=== PATIENT | male | born 1955 | race Caucasian/White ===

== ENCOUNTER 2017-09-22 08:16 | Day surgery (SDC) | payer MEDICAID ==
[2017-09-22 08:43] VITALS: BMI 23.1
[2017-09-22] MEDS ORDERED: Propofol 10 mg/ml Inj (20 ML) ONE ×3 (10:15→11:28)
[2017-09-22] MEDS ORDERED: Midazolam 2 MG/2 ML VIAL ONE (10:15)
[2017-09-22] MEDS ORDERED: Lidocaine 1% Inj (20ml) ONE (10:17)
[2017-09-22] MEDS ORDERED: Bupivacaine 0.5% Inj(30mL) ONE (10:17)
[2017-09-22] MEDS ORDERED: Lidocaine 1% w Epi 1:100,000 Inj ONE (10:17)
--- NOTE | 2017-09-22 12:02 | PCM.SURG1 ---
Surgeon's Initial Post Op Note - Surgeon's Notes Surgeon: Dr. Clarke Stencil Printer: Daniela PGY1 Type of Anesthesia: IV Sedation, Local Anesthesia Administered By: Dr. Zamora Pre-Operative Diagnosis: Left volar ganglion cyst Operative Findings: Left volar ganglion cyst Post-Operative Diagnosis: Left volar ganglion cyst Operation Performed: Removal of Left volar ganglion cyst Specimen/Specimens Removed: Left volar ganglion cyst Estimated Blood Loss: EBL {In ML}: 10 Blood Products Given: N/A Drains Used: No Drains Post-Op Condition: Good Date of Surgery/Procedure: 09/22/17 Time of Surgery/Procedure: 12:01
[2017-09-22] MEDS ORDERED: Lactated Ringer's 1,000 ML IV SCH (12:15)
[2017-09-22 12:53] VITALS: BP 144/72; PULSE 67; RESP 20; O2SAT 94
[2017-09-22 13:52] VITALS: TEMP 97.3
--- NOTE | 2017-09-24 08:11 | OP ---
PROCEDURE DATE: 09/22/2017 He is admitted and operated on 09/22/2017. SURGEON: Bart Clarke MD. RADIOLOGY SUPERVISOR: Demetri Lamb DO, PGY-1. MANUFACTURING QUALITY MANAGER: Dr. Zamora. ANESTHESIA: MAC-Marcaine 0.5-13 mL. 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 PROCEDURE: On 09/22/2017 is excision of a recurrent left wrist ganglion. There was intermediate layered plastic closure 5 cm. 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 The lesion has been previously removed and recurred and then followed up here several years later, injected, aspirated and the lesion has shrunk, but still continues to give the patient discomfort and with the recommendation that this could be removed with the possibility of another recurrence being described, the patient does sign the informed consent. OPERATIVE NOTE: The patient was brought to the operating room. He was identified by his wrist band, undergoes time-out procedure. He was placed on the table in a supine manner and following intravenous sedation and oxygenation monitoring (MAC) by Dr. Zamora, the left wrist was placed on an ironing board table, aseptically draped and then prepped with Hibiclens. Infiltration elliptically around the lesion from the wrist towards the forearm is employed with the bupivacaine and after good anesthetic take, incision is made longitudinally along the midline from the wrist to the forearm. Sharp dissection is carried on down to the cicatrix below and hemostasis is contained with electrocoagulating cautery. Flaps are raised laterally with sharp dissection and hemostasis contained with the cautery again. The lesion is grasped with Hemostat, elevated and dissection is carried on sharply down through the deeper structures to the tendons below and care was taken to avoid injury to the median nerve directly below this. The lesion is completely removed at this point and no additional mucoid or glandular secreting tissue was visualized. The surface areas are electrofulgurated at this point to help prevent this as well. Hemostasis is confirmed and the wound is now closed in layers using 3-0 Polysorb subcutaneous approximation and 3-0 nylon running locking vertical mattress sutures for the skin incision. A dry dressing is applied. The patient was then awakened, transported to the recovery room in a satisfactory condition. Estimated blood loss during the procedure was less than 10 mL of blood. This dictation will be electronically signed without being read. The surgical specialist was present throughout the procedure from beginning to end and was exceptionally necessary for dissection and removal of the lesion. Bart Clarke MD
== END 2017-09-22 14:00 | disposition home or self-care (01) ==
LOC: SDS 08:16
PROVIDERS: ATTEND Surgery
DX: M67.432 Ganglion, left wrist (principal); I10 Essential (primary) hypertension
CPT/HCPCS: 25112; 88304; J0690; J1885; J2250; J2405; J2704; J3010; J7120 ×2

== ENCOUNTER 2017-10-01 16:04 | Emergency (ER) | payer MEDICAID ==
[2017-10-01 16:14] VITALS: BMI 28.2
[2017-10-01 16:17] VITALS: BP 104/64; RESP 18
[2017-10-01] MEDS ORDERED: Oxycodone/Acetaminophen 5/325 mg Tab PO STA (16:34)
--- NOTE | 2017-10-01 16:38 | ED PDOC ---
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 Pt reports, " heavy object fell down to left leg". Pt unable to bear weight on injured leg due to pain. Otherwise, no obvious deformity, open wounds, sensory or vascular deficits noted. Appears in pain now. No other complaints offered at present time. Past Medical History - Provider Review Nursing Documentation Reviewed: Yes - Travel History Have you recently traveled outside [place] w/in the past 3 mons?: No - Infectious Disease Hx of Infectious Diseases: None - Tetanus Immunization Tetanus Immunization: Unknown - Cardiac Hx Hypertension: Yes Hx Pacemaker: No - Pulmonary Hx Respiratory Disorders: No - Neurological Hx Paralysis: No - HEENT Hx HEENT Disorder: No - Renal Hx Renal Disorder: No - Endocrine/Metabolic Hx Endocrine Disorders: No - Hematological/Oncological Hx Blood Transfusions: No - Integumentary Hx Dermatological Disorder: No - Musculoskeletal/Rheumatological Hx Musculoskeletal Disorders: No - Gastrointestinal Hx Gastrointestinal Disorders: No - Genitourinary/Gynecological Hx Genitourinary Disorders: No - Psychiatric Hx Emotional Abuse: No Hx Physical Abuse: No Hx Substance Use: No - Surgical History Hx Orthopedic Surgery: Yes (ignacia knee) - Anesthesia Hx Anesthesia: Yes Hx Anesthesia Reactions: No Hx Malignant Hyperthermia: No - Suicidal Assessment Feels Threatened In Home Enviroment: No Family/Social History - Physician Review Nursing Documentation Reviewed: Yes Family/Social History: No Known Family HX Smoking Status: Never Smoked Hx Alcohol Use: Yes Hx Substance Use: No Hx Substance Use Treatment: No Allergies/Home Meds Allergies/Adverse Reactions: Allergies No Known Allergies Allergy (Verified 02/27/15 12:44) Home Medications: Home Meds Medication Instructions Recorded Confirmed Lisinopril [Zestril] 20 mg PO DAILY 08/27/17 10/01/17 Review of Systems - Review of Systems Constitutional: Normal Eyes: Normal ENT: Normal Respiratory: Normal Cardiovascular: Normal Gastrointestinal: Normal Genitourinary Male: Normal Musculoskeletal: Arthralgias (Left knee,left lower leg pain) Skin: Normal Neurological: Normal Endocrine: Normal Hemo/Lymphatic: Normal Psychiatric: Normal Physical Exam Vital Signs Temp Pulse Resp BP Pulse Ox 10/01/17 18:39 98.1 F 99 H 18 99 10/01/17 16:17 98.8 F 96 H 18 104/64 95 Temperature: Afebrile Blood Pressure: Normal Pulse: Regular Respiratory Rate: Normal Appearance: Positive for: Well-Appearing, Non-Toxic Pain Distress: Moderate Mental Status: Positive for: Alert and Oriented X 3 - Systems Exam Head: Present: Atraumatic, Normocephalic Conjunctiva: Present: Normal Nose (Internal): Present: Normal Inspection Neck: Present: Normal Range of Motion, Trachea Midline. No: MIDLINE TENDERNESS , Paraspinal Tenderness Respiratory/Chest: No: Tender to Palpation Abdomen: No: Tenderness, Distention, Peritoneal Signs Back: No: Midline Tenderness Upper Extremity: Present: Normal Inspection, Normal ROM, NORMAL PULSES, Neurovascularly Intact, Capillary Refill < 2s. No: Tenderness, Swelling, Deformity Lower Extremity: Present: NORMAL PULSES, Normal ROM (discomfort to left knee flexion/extension due to pain. No deformity, no neurovascular deficits distally to injury.), Tenderness (Left knee over lateral aspect extend down to left proximal fibula, No palpable deformity, no edema, no ecchymoses, no skin changes.), Neurovascularly Intact, Capillary Refill < 2 s (to left foot). No: Edema, Swelling, Deformity Neurological: Present: GCS=15, Speech Normal, Motor Func Grossly Intact, Normal Sensory Function, Norm Deep Tendon Reflexes Skin: Present: Warm, Dry, Normal Color. No: Rashes Psychiatric: Present: Alert, Oriented x 3, Normal Insight, Normal Concentration Medical Decision Making ED Course and Treatment: 10/01/17 On re-eval, pt remained stable, afebrile, hemodynamicaly stable. Non-toxic. Head: AT/NC neck; Supple, (-) midline tenderness. Abd: benign. LLE: lateral aspect of left knee tenderness with discomfort to flexion/ extension. NO obvious deformity, no neurovscular deficits distally to injury. Imaging review (+) tibial plateu fx Knee immobilizer, crutches given. results review and discussed with patient. Advised and ref. to F/u with Ortho in 2-3 days for re-evaluation and further tx. return to Ed if any worsening or new changes. - RAD Interpretation Radiology Orders: 10/01/17 16:33 TIBIA FIBULA LEFT [RAD] Stat 10/01/17 16:34 KNEE LEFT 2 VIEWS (AP & LAT) [RAD] Stat (+)Left tibial plateu fx - Medication Orders Current Medication Orders: Discontinued Medications Oxycodone/Acetaminophen (Percocet 5/325 Mg Tab) 1 tab PO STAT STA Stop: 10/01/17 16:35 Last Admin: 10/01/17 17:08 Dose: 1 tab MAR Pain Assessment Document 10/01/17 17:08 GMD (Rec: 10/01/17 17:08 GMD [id number]) Pain Reassessment Is this a pain reassessment? No Disposition/Present on Arrival - Present on Arrival Any Indicators Present on Arrival: No History of DVT/PE: No History of Uncontrolled Diabetes: No Urinary Catheter: No History of Decub. Ulcer: No History Surgical Site Infection Following: None - Disposition Have Diagnosis and Disposition been Completed?: Yes Diagnosis: Tibial plateau fracture, left Disposition: HOME/ ROUTINE Disposition Time: 17:25 Patient Plan: Discharge Condition: STABLE Discharge Instructions (ExitCare): Tibial Plateau Fracture (DC) Print Language: PERSIAN Additional Instructions: None weight bearing foe 2 weeks and until cleared by Orthopedist Knee immobilizer for 3 weeks Take pain medication as prescribed Follow up with Orthopedist in 2-3 days for re-evaluation and further treatment as need Return to ED if any worsening or new changes. Prescriptions: traMADol [Ultram] 50 mg PO TID #10 tab Referrals: Arcenio Johnston APN [Primary Care Provider] - Follow up with primary Thais Waldrop MD [Staff Provider] - Follow up with primary Forms: [employer] (Moroccan), WORK NOTE Orthopedic Time Performed: 17:25 Time Out: Side verified, Site verified, Patient ID confirmed Procedure: Immobilizer Location: Left Consent obtained: Verbal Performed by: Mid-level Provider Diagnosis: Fracture Type: Closed Bone: Tibia Other:: plateu
[2017-10-01 18:41] VITALS: PULSE 99; TEMP 98.1; O2SAT 99
--- NOTE | 2017-10-02 09:47 | RAD ---
PROCEDURE: Radiographs of the left tibia and fibula. HISTORY: injury COMPARISON: None available. TECHNIQUE: Frontal and lateral views obtained. FINDINGS: BONES: No fracture or destructive lesion. JOINT SPACES: Unremarkable. OTHER FINDINGS: None. IMPRESSION: Unremarkable radiographs of the left tibia and fibula.
--- NOTE | 2017-10-02 09:57 | RAD ---
PROCEDURE: Left Knee Radiographs. HISTORY: Pain. COMPARISON: None. FINDINGS: BONES: There is a nondisplaced fracture through the tibial spine. JOINTS: Normal. No osteoarthritis. JOINT EFFUSION: None. OTHER FINDINGS: None. IMPRESSION: There is a nondisplaced fracture through the tibial spine.
== END 2017-10-01 18:42 | disposition home or self-care (01) ==
LOC: ED 16:04
DX: S82.142A Displaced bicondylar fracture of left tibia, initial encounter for closed fracture (principal); W22.8XXA Striking against or struck by other objects, initial encounter; Y92.89 Other specified places as the place of occurrence of the external cause; Y99.8 Other external cause status

== ENCOUNTER 2017-10-02 11:28 | Emergency (ER) | payer MEDICAID ==
[2017-10-02 11:28] VITALS: BMI 28.2
[2017-10-02 11:46] VITALS: BP 101/59; PULSE 81; TEMP 98.3; O2SAT 99
[2017-10-02] MEDS ORDERED: Oxycodone/Acetaminophen 5/325 mg Tab PO STA (11:59)
--- NOTE | 2017-10-02 12:14 | ED PDOC ---
Arrival/HPI - General Chief Complaint: Trauma Time Seen by Provider: 10/02/17 11:43 Historian: Patient - History of Present Illness Narrative History of Present Illness (Text): 10/02/17 12:09 62 y/o male, here for the lt. tibial plateau pain which he was seen in the ER yesterday with no new injury or fall. Pt. stated that he needs stronger than tylenol pain killer, stated that he would like to be re-evaluated, no calf pain and no thigh pain, no fever or chills, no palpitation, no other medical or psychological complaints. Past Medical History - Provider Review Nursing Documentation Reviewed: Yes - Infectious Disease Hx of Infectious Diseases: None - Tetanus Immunization Tetanus Immunization: Unknown - Cardiac Hx Hypertension: Yes - Pulmonary Hx Respiratory Disorders: No - Neurological Hx Paralysis: No - HEENT Hx HEENT Disorder: No - Renal Hx Renal Disorder: No - Endocrine/Metabolic Hx Endocrine Disorders: No - Hematological/Oncological Hx Blood Transfusions: No - Integumentary Hx Dermatological Disorder: No - Musculoskeletal/Rheumatological Hx Musculoskeletal Disorders: No - Gastrointestinal Hx Gastrointestinal Disorders: No - Genitourinary/Gynecological Hx Genitourinary Disorders: No - Psychiatric Hx Psychophysiologic Disorder: No Hx Substance Use: No - Surgical History Hx Orthopedic Surgery: Yes (ignacia knee) - Anesthesia Hx Anesthesia: Yes Hx Anesthesia Reactions: No Hx Malignant Hyperthermia: No - Suicidal Assessment Feels Threatened In Home Enviroment: No Family/Social History - Physician Review Nursing Documentation Reviewed: Yes Family/Social History: Unknown Family HX Smoking Status: Never Smoked Hx Alcohol Use: Yes Hx Substance Use: No Hx Substance Use Treatment: No Allergies/Home Meds Allergies/Adverse Reactions: Allergies No Known Allergies Allergy (Verified 10/02/17 11:48) Home Medications: Home Meds Medication Instructions Recorded Confirmed Lisinopril [Zestril] 20 mg PO DAILY 08/27/17 10/02/17 Review of Systems - Review of Systems Constitutional: absent: Fatigue, Fevers Eyes: absent: Vision Changes ENT: absent: Hearing Changes Respiratory: absent: SOB, Cough Cardiovascular: absent: Chest Pain Gastrointestinal: absent: Abdominal Pain, Nausea, Vomiting Musculoskeletal: Arthralgias, Joint Swelling. absent: Back Pain, Neck Pain, Myalgias Skin: absent: Rash, Pruritis, Skin Lesions Neurological: absent: Headache, Dizziness Psychiatric: absent: Anxiety, Depression Physical Exam Vital Signs Reviewed: Yes Vital Signs Temp Pulse Resp BP Pulse Ox 10/02/17 11:45 98.3 F 81 18 101/59 L 99 Temperature: Afebrile Blood Pressure: Normal Pulse: Regular Respiratory Rate: Normal Appearance: Positive for: Well-Appearing, Non-Toxic, Comfortable Pain Distress: Moderate Mental Status: Positive for: Alert and Oriented X 3 - Systems Exam Head: Present: Atraumatic, Normocephalic Pupils: Present: PERRL Extroacular Muscles: Present: EOMI Conjunctiva: Present: Normal Mouth: Present: Moist Mucous Membranes Neck: Present: Normal Range of Motion Respiratory/Chest: Present: Clear to Auscultation, Good Air Exchange. No: Respiratory Distress, Accessory Muscle Use Cardiovascular: Present: Regular Rate and Rhythm, Normal S1, S2. No: Murmurs Abdomen: No: Tenderness, Distention, Peritoneal Signs Back: Present: Normal Inspection Upper Extremity: Present: Normal Inspection. No: Cyanosis, Edema Lower Extremity: Present: Normal Inspection, Other (Lt. knee: +ttp and swelling anterior of the knee with skin intact, limited ROM with the pain upon movement, no septic joint and no signs compartment syndrome, +DPPT pulses, neurovascular intact.). No: Edema Neurological: Present: GCS=15, CN II-XII Intact, Speech Normal, Motor Func Grossly Intact, Memory Normal Skin: Present: Warm, Dry, Normal Color. No: Rashes Psychiatric: Present: Alert, Oriented x 3, Normal Insight, Normal Concentration Medical Decision Making ED Course and Treatment: 10/02/17 12:11 -Percocet -Discussed with Dr. Waldrop cycle consultant and reviewed xray report, suggest to get CT lt. knee and knee immobilizer is good since he has it on with no splint needed -CT left knee ordered. -Observe and reassess 10/02/17 12:14 -I was told by the CARDIOVASCULAR TECHNOLOGIST that he eloped from the ER and went to see his own pmd. - RAD Interpretation Radiology Orders: 10/02/17 12:03 KNEE WITHOUT CONTRAST LEFT [CT] Stat - Medication Orders Current Medication Orders: Discontinued Medications Oxycodone/Acetaminophen (Percocet 5/325 Mg Tab) 1 tab PO STAT STA Stop: 10/02/17 12:00 - PA / FURNITURE REPRODUCER / Resident Statement MD/DO has reviewed & agrees with the documentation as recorded. Disposition/Present on Arrival - Present on Arrival Any Indicators Present on Arrival: No History of DVT/PE: No History of Uncontrolled Diabetes: No Urinary Catheter: No History of Decub. Ulcer: No History Surgical Site Infection Following: None - Disposition Have Diagnosis and Disposition been Completed?: Yes Diagnosis: Tibial plateau fracture, left Disposition: ELOPEMENT - ER ONLY Disposition Time: 12:13 Patient Problems: Current Active Problems Problem Status Onset Tibial plateau fracture, left Acute Condition: GOOD Referrals: Arcenio Johnston APN [Primary Care Provider] - Follow up with primary
[2017-10-02 13:13] VITALS: RESP 16
== END 2017-10-02 13:11 | disposition left against medical advice (07) ==
LOC: ED 11:28
DX: S82.142D Displaced bicondylar fracture of left tibia, subsequent encounter for closed fracture with routine healing (principal); W22.8XXD Striking against or struck by other objects, subsequent encounter